=== PATIENT | female | born 1970 | race Caucasian/White ===

== ENCOUNTER → 2016-11-29 | Outpatient (CLI) | payer BC, OTHER ==
--- NOTE | 2016-11-29 16:47 | MAMMOGRAPHY REPORT ---
BILATERAL DIGITAL SCREENING MAMMOGRAM TOMOSYNTHESIS WITH CAD: 11/29/2016 CLINICAL HISTORY: Routine screening. Patient has no complaints. TECHNIQUE: Breast tomosynthesis in addition to standard 2D mammography was performed. Current study was also evaluated with a Computer Aided Detection (CAD) system. COMPARISON: Comparison is made to exams dated: 11/27/2015 mammogram, 12/11/2012 mammogram, 07/31/2014 m ammogram, 06/07/2011 ultrasound, and 06/01/2011 mammogram - [facility]. BREAST COMPOSITION: The tissue of both breasts is heterogeneously dense, which may obscure small ma sses. FINDINGS: There are fluctuating masses in the breasts. A circumscribed margins are best appreciated on the corresponding tomosynthesis images. These most likely represent fluctuating cysts. There a re a few scattered round and punctate benign-appearing microcalcifications in the breasts. No new s uspicious mass, architectural distortion or cluster of microcalcifications is seen. IMPRESSION: ACR BI-RADS CATEGORY 1: NEGATIVE There is no mammographic evidence of malignancy. A 1 year screening mammogram is recommended. The p atient will receive written notification of the results. Approximately 10% of breast cancers are not detected with mammography. A negative mammographic repor t should not delay biopsy if a clinically suggestive mass is present. Magnolia Moreland M.D. ay/:11/29/2016 16:10:00 Shingles Roofer Helper: Melanie CARDENAS)(Enrique), [facility] letter sent: Normal 1/2 BI-RADS Code: ACR BI-RADS Category 1: Negative
== END | disposition home or self-care (01) ==
LOC: C.MAMM 15:41
PROVIDERS: ATTEND Obstetrics & Gynecology
DX: Z12.31 Encounter for screening mammogram for malignant neoplasm of breast (principal)

== ENCOUNTER → 2017-08-29 | Outpatient (CLI) | payer BC, OTHER ==
--- NOTE | 2017-08-29 12:49 | DIAGNOSTIC IMAGING REPORT ---
ABDOMEN LIMITED (US) HISTORY: Pain AB PAIN. COMPARISON: None. FINDINGS: Pancreas: The pancreas demonstrates a normal echotexture. Liver: Unremarkable. Gallbladder: Small amount gallbladder sludge. No shadowing gallstones. CBD: 6 mm Right kidney: No evidence for hydronephrosis. Small nonobstructing calcification lower pole. IMPRESSION: Gallbladder sludge. Normal caliber bile duct. Nonobstructing lower pole right renal calcification The above report was generated using voice recognition software. It may contain grammatical, syntax or spelling errors. Electronically signed by: Siva Gomez M.D. 08/29/2017 12:48 PM Dictated Date/Time: 08/29/2017 12:33 PM
== END | disposition home or self-care (01) ==
LOC: C.ULTR 11:50
PROVIDERS: ATTEND Internal Medicine
DX: R10.13 Epigastric pain (principal); R10.11 Right upper quadrant pain; N20.0 Calculus of kidney; K82.8 Other specified diseases of gallbladder; Z85.828 Personal history of other malignant neoplasm of skin

== ENCOUNTER → 2017-10-04 | Outpatient (CLI) | payer BC, OTHER ==
[~2017-10-04] MED LIST: SINCALIDE INJ 1.45 MCG in SODIUM CHLORIDE 0.9% 100ML 100 ML IV STA
--- NOTE | 2017-10-04 10:06 | DIAGNOSTIC IMAGING REPORT ---
HEPATOBILIARY EF IMAGING CLINICAL HISTORY: 47 years-old Female with AB PAIN. Acute generalized abdominal pain TECHNIQUE: Following the intravenous administration of 5.5 mCi of technetium-99m Choletec, sequential abdominal images were obtained. In order to evaluate the contractile response of the gallbladder, 1.45 mcg of Kinevac was administered by slow intravenous infusion over 30 min starting approximately 60 min after the administration of the radiopharmaceutical. Sequential imaging was continued for 45 min after the start of the Kinevac infusion. COMPARISON: Abdominal ultrasound 08/29/2017 FINDINGS: There is prompt, uniform accumulation of the tracer by the liver. There is normal filling of the intrahepatic ducts, common bile duct and gallbladder and normal excretion of the tracer into the duodenum. There is adequate contraction of the gallbladder. The calculated gallbladder ejection fraction is 52% (normal >40%). There is no significant enterogastric reflux. IMPRESSION: 1. Normal contractile response of the gallbladder to Kinevac infusion. 2. Normal biliary imaging study. The above report was generated using voice recognition software. It may contain grammatical, syntax or spelling errors. Electronically signed by: Dontae Garcia M.D. 10/04/2017 10:04 AM Dictated Date/Time: 10/04/2017 10:02 AM
== END | disposition home or self-care (01) ==
LOC: C.NUCL 07:44
PROVIDERS: ATTEND Nurse Practitioner Family
DX: R10.13 Epigastric pain (principal); K83.8 Other specified diseases of biliary tract

== ENCOUNTER → 2017-12-15 | Outpatient (CLI) | payer OTHER ==
--- NOTE | 2017-12-16 15:27 | MAMMOGRAPHY REPORT ---
BILATERAL DIGITAL SCREENING MAMMOGRAM TOMOSYNTHESIS WITH CAD: 12/15/2017 CLINICAL HISTORY: Routine screening. TECHNIQUE: Breast tomosynthesis in addition to standard 2D mammography was performed. Current study was also evaluated with a Computer Aided Detection (CAD) system. COMPARISON: Comparison is made to exams dated: 11/29/2016 mammogram, 11/27/2015 mammogram, 07/31/2014 m ammogram, 12/11/2012 mammogram, 06/01/2011 mammogram, and 06/07/2011 mammogram - [facility]. BREAST COMPOSITION: The tissue of both breasts is heterogeneously dense, which may obscure small mas ses. FINDINGS: No suspicious masses, calcifications, or areas of architectural distortion are noted in ei ther breast. There has been no significant interval change compared to prior exams. Again noted are fluctuating bilateral circumscribed and partially circumscribed round/oval masses, which are consider ed benign given the multiplicity and bilaterality and likely represent cysts, with cysts noted on the prior 2010 ultrasound exam. Scattered bilateral benign appearing calcifications are also not signif icantly changed. IMPRESSION: ACR BI-RADS CATEGORY 2: BENIGN There is no mammographic evidence of malignancy. A 1 year screening mammogram is recommended. The pa tient will receive written notification of the results. Approximately 10% of breast cancers are not detected with mammography. A negative mammographic report should not delay biopsy if a clinically suggestive mass is present. Opal Larson M.D. /:12/15/2017 15:08:23 Senior Functional Analyst: Jo-Ann CARDENAS)(Enrique), [facility] letter sent: Normal 1/2 BI-RADS Code: ACR BI-RADS Category 2: Benign
== END | disposition home or self-care (01) ==
LOC: C.MAMM 14:32
PROVIDERS: ATTEND Nurse Practitioner Family
DX: Z12.31 Encounter for screening mammogram for malignant neoplasm of breast (principal)

== ENCOUNTER 2018-02-17 09:03 | Emergency (ER) | payer OTHER ==
[~2018-02-17] VITALS: Ht 167.6 cm; Wt 69.4 kg
[2018-02-17 09:05] VITALS: TEMP 36.6; Ht 167.6 cm; Wt 69.4 kg
[2018-02-17] MEDS ORDERED: KETOROLAC TROMETHAMINE 30 MG/ML VIAL IV STA (09:22)
[2018-02-17] MEDS ORDERED: SODIUM CHLORIDE 0.9% 1000ML 1,000 ML IV STA (09:22)
[2018-02-17] MEDS ORDERED: MAGNESIUM SULFATE 1GM / D5W 1 GM BAG IV STA (09:22)
[2018-02-17] MEDS ORDERED: PROCHLORPERAZINE 5 MG/ML 2 ML VIAL IV STA (09:22)
[2018-02-17] MEDS ORDERED: DiphenhydrAMINE HCL 50 MG/ML VIAL IV STA (09:22)
[2018-02-17 09:43] LABS: BASO % 0.2 %; BASO ABS # 0.01 K/uL (0-0.2); EOS ABS # 0.13 K/uL (0-0.5); HEMATOCRIT 41.6 % (37-47); HEMOGLOBIN 14.5 g/dL (12.0-16.0); IG# 0.02 K/uL (0.00-0.02); LYMPH % 21.9 %; LYMPH ABS # 1.44 K/uL (1.2-3.4); MEAN CELL VOLUME 86.3 fL (80-100); MEAN CORPUSCULAR HEMOGLOBIN 30.1 pg (25-34); MEAN CORPUSCULAR HGB CONC 34.9 g/dl (32-36); MONO % 9.1 %; NEUT % 66.5 %; NEUT ABS # 4.38 K/uL (1.4-6.5); PLATELET COUNT 250 K/uL (130-400); RED CELL DISTRIBUTION WIDTH CV 13.7 % (11.5-14.5); RED CELL DISTRIBUTION WIDTH SD 43.7 fL (36.4-46.3); WHITE BLOOD COUNT 6.58 K/uL (4.8-10.8)
[2018-02-17] MEDS ORDERED: IBUP-103 PO (09:49)
[2018-02-17 10:01] LABS: ALBUMIN 3.8 gm/dl (3.4-5.0); CALCIUM 8.8 mg/dl (8.5-10.1); CREATININE 0.66 mg/dl (0.60-1.20); POTASSIUM 3.7 mmol/L (3.5-5.1)
[2018-02-17 10:03] LABS: TOTAL PROTEIN 7.1 gm/dl (6.4-8.2)
--- NOTE | 2018-02-17 10:12 | DIAGNOSTIC IMAGING REPORT ---
CT SCAN OF THE BRAIN WITHOUT IV CONTRAST CLINICAL HISTORY: Headache. COMPARISON STUDY: No priors. TECHNIQUE: Unenhanced axial CT scan of the brain is performed from the vertex to the skull base. A dose lowering technique was utilized adhering to the principles of ALARA. CT DOSE: 537.48 mGy.cm FINDINGS: Brain parenchyma: The brain parenchyma is normal in appearance. There is no hemorrhage, mass effect, or evidence of acute territorial ischemia by CT criteria. Zavaleta-white matter is preserved. No extra-axial fluid collection is seen. Ventricles, sulci, cisterns: Normal in configuration. Intracranial vasculature: The visualized intracranial vasculature at the skull base is normal in appearance. Calvarium: Unremarkable. Sinuses and mastoids: The visualized paranasal sinuses are clear. The mastoid air cells are well pneumatized. Orbits: The bony orbits are grossly intact. IMPRESSION: No acute intracranial abnormality. Electronically signed by: Chon Gaviria M.D. 02/17/2018 10:11 AM Dictated Date/Time: 02/17/2018 10:08 AM
[2018-02-17] MEDS ORDERED: DEXAMETHASONE INJ 10 MG in SYRINGE 0 ML IV STA (10:26)
--- NOTE | 2018-02-17 11:38 | EMERGENCY ROOM VISIT NOTE ---
History Report prepared by Hira: Isaias Cervantes Under the Supervision of: Dr. Rickey Ramos M.D. First contact with patient: 09:13 Chief Complaint: HEAD PAIN Stated Complaint: HEAD PAIN History of Present Illness The patient is a 47 year old female who presents to the Emergency Room with complaints of constant headache beginning two days ago. She localizes the pain to the back of her head. Her pain began with gradually. The patient has a former history of migraines (over 25 years ago), but states that her headache feels unlike any that she has ever had. She also complains of neck stiffness and pain. She describes her neck pain as "aching". The patient denies cough, fevers, or chills. She has taken Advil for her pain, but nothing has improved her symptoms. She denies recent trauma or injury. The patient works at [employer] and is around students frequently. She is concerned about Lyme Disease as she has been outside at her cabin a lot recently. She notes that she has two dogs. The patient states that she has noticed a rash to her neck. Source of History: patient Onset: Two days ago Position: head Quality: ache Timing: constant Modifying Factors (Relieving): other (none) Associated Symptoms: + neck pain ("ache" and stiffness), + rash (to neck), No fevers, No chills, No cough Review of Systems See HPI for pertinent positives & negatives. A total of 10 systems reviewed and were otherwise negative. Past Medical & Surgical Medical Problems: (1) No Known Active Medical Problems Family History No pertinent family history stated. Social History Smoking Status: Never Smoker Marital Status: Housing Status: lives with family Occupation Status: employed Current/Historical Medications Scheduled Ibuprofen Tab (Advil), 800 MG PO UD Allergies Uncoded Allergies: SULFA DRUGS (Adverse Reaction, Intermediate, NAUSEA, 02/17/18) Physical Exam Vital Signs Date Time Temp Pulse Resp B/P (MAP) Pulse Ox O2 Delivery O2 Flow Rate FiO2 02/17/18 11:42 65 16 120/80 98 02/17/18 10:30 62 137/96 02/17/18 10:20 65 02/17/18 09:05 36.6 78 20 139/90 98 Room Air Physical Exam GENERAL: Awake, alert, well-appearing, in no acute distress. No evidence of meningitis or encephalitis on exam. HENT: Normocephalic, atraumatic. Oropharynx unremarkable. EYES: Normal conjunctiva. Sclera non-icteric. NECK: Supple. No nuchal rigidity. FROM. No JVD. RESPIRATORY: Clear to auscultation. CARDIAC: Regular rate, normal rhythm. Extremities warm and well perfused. Pulses equal. ABDOMEN: Soft, non-distended. No tenderness to palpation. No rebound or guarding. No masses. RECTAL: Deferred. MUSCULOSKELETAL: Chest examination reveals no tenderness. The back is symmetrical on inspection without obvious abnormality. There is no CVA tenderness to palpation. No joint edema. LOWER EXTREMITIES: Calves are equal size bilaterally and non-tender. No edema. No discoloration. NEURO: Normal sensorium. No sensory or motor deficits noted. SKIN: No jaundice noted. Appearance of a [place] patch to the right neck. Medical Decision & Procedures ER Provider Diagnostic Interpretation: Radiology results as stated below per my review and radiologist interpretation: CT SCAN OF THE BRAIN WITHOUT IV CONTRAST FINDINGS: Brain parenchyma: The brain parenchyma is normal in appearance. There is no hemorrhage, mass effect, or evidence of acute territorial ischemia by CT criteria. Zavaleta-white matter is preserved. No extra-axial fluid collection is seen. Ventricles, sulci, cisterns: Normal in configuration. Intracranial vasculature: The visualized intracranial vasculature at the skull base is normal in appearance. Calvarium: Unremarkable. Sinuses and mastoids: The visualized paranasal sinuses are clear. The mastoid air cells are well pneumatized. Orbits: The bony orbits are grossly intact. IMPRESSION: No acute intracranial abnormality. Electronically signed by: Chon Gaviria M.D. 02/17/2018 10:11 AM Laboratory Results 02/17/18 09:35 Red Blood Count 4.82, Mean Corpuscular Volume 86.3, Mean Corpuscular Hemoglobin 30.1, Mean Corpuscular Hemoglobin Concent 34.9, Mean Platelet Volume 9.0, Neutrophils (%) (Auto) 66.5, Lymphocytes (%) (Auto) 21.9, Monocytes (%) (Auto) 9.1, Eosinophils (%) (Auto) 2.0, Basophils (%) (Auto) 0.2, Neutrophils # (Auto) 4.38, Lymphocytes # (Auto) 1.44, Monocytes # (Auto) 0.60, Eosinophils # (Auto) 0.13, Basophils # (Auto) 0.01 02/17/18 09:35 Test 02/17/18 09:35 White Blood Count 6.58 K/uL (4.8-10.8) Red Blood Count 4.82 M/uL (4.2-5.4) Hemoglobin 14.5 g/dL (12.0-16.0) Hematocrit 41.6 % (37-47) Mean Corpuscular Volume 86.3 fL (80-100) Mean Corpuscular Hemoglobin 30.1 pg (25-34) Mean Corpuscular Hemoglobin Concent 34.9 g/dl (32-36) Platelet Count 250 K/uL (130-400) Mean Platelet Volume 9.0 fL (7.4-10.4) Neutrophils (%) (Auto) 66.5 % Lymphocytes (%) (Auto) 21.9 % Monocytes (%) (Auto) 9.1 % Eosinophils (%) (Auto) 2.0 % Basophils (%) (Auto) 0.2 % Neutrophils # (Auto) 4.38 K/uL (1.4-6.5) Lymphocytes # (Auto) 1.44 K/uL (1.2-3.4) Monocytes # (Auto) 0.60 K/uL (0.11-0.59) Eosinophils # (Auto) 0.13 K/uL (0-0.5) Basophils # (Auto) 0.01 K/uL (0-0.2) RDW Standard Deviation 43.7 fL (36.4-46.3) RDW Coefficient of Variation 13.7 % (11.5-14.5) Immature Granulocyte % (Auto) 0.3 % Immature Granulocyte # (Auto) 0.02 K/uL (0.00-0.02) Anion Gap 2.0 mmol/L (3-11) Est Creatinine Clear Calc Drug Dose 97.5 ml/min Estimated GFR () 121.1 Estimated GFR (Non- 104.5 BUN/Creatinine Ratio 18.4 (10-20) Calcium Level 8.8 mg/dl (8.5-10.1) Total Bilirubin 1.4 mg/dl (0.2-1) Direct Bilirubin 0.3 mg/dl (0-0.2) Aspartate Amino Transf (AST/SGOT) 10 U/L (15-37) Alanine Aminotransferase (ALT/SGPT) 17 U/L (12-78) Alkaline Phosphatase 77 U/L (45-117) Total Protein 7.1 gm/dl (6.4-8.2) Albumin 3.8 gm/dl (3.4-5.0) Lipase 218 U/L (73-393) Lyme Disease IgG Antibody NEG (NEG) Lyme Disease IgM Antibody NEG (NEG) Labs reviewed by ED physician. Medications Administered Medications (Trade) Dose Ordered Sig/Paulo Route Start Time Stop Time Status Last Admin Dose Admin Sodium Chloride 1,000 ml @ 999 mls/hr Q1H1M STAT IV 02/17/18 09:22 02/17/18 10:22 DC 02/17/18 09:22 999 MLS/HR Ketorolac Tromethamine (Toradol Inj) 30 mg NOW STAT IV 02/17/18 09:22 02/17/18 09:24 DC 02/17/18 09:37 30 MG Prochlorperazine Edisylate (Compazine Inj) 5 mg NOW STAT IV 02/17/18 09:22 02/17/18 09:24 DC 02/17/18 09:37 5 MG Diphenhydramine HCl (Benadryl Inj) 50 mg NOW STAT IV 02/17/18 09:22 02/17/18 09:24 DC 02/17/18 09:37 50 MG Magnesium Sulfate (Magnesium Sulfate) 1 gm NOW STAT IV 02/17/18 09:22 02/17/18 09:24 DC 02/17/18 09:36 1 GM Dexamethasone Sodium Phosphate 10 mg/Syringe 2.5 ml @ 1 mls/min NOW STAT IV 02/17/18 10:26 02/17/18 10:28 DC 02/17/18 10:43 1 MLS/MIN ED Course 0915: Past medical records reviewed. The patient was evaluated in room B12B. A complete history and physical examination was performed. 0922: Ordered Magnesium Sulfate 1 gm IV, Benadryl Inj 50 mg IV, Compazine Inj 5 mg IV, Toradol Inj 30 mg IV, Sodium Chloride 1000 ml @ 999 mls/hr IV. 1135: Upon reexamination the patient is resting comfortably. She would like to go home. I discussed results and treatment plan with the patient. She verbalizes agreement and understanding. The patient is ready for discharge. Medical Decision Differential diagnosis: Etiologies such as migraine headache, meningitis, sinusitis, CO exposure, ICH, SAH, infection, tumor, headache, sinus thrombosis, arterial dissection, as well as others were entertained. This is a 47-year-old female who presents emergency department complaining of a headache. In addition the patient appears to have a herald patch on her right lower neck area. 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 An IV was established, the patient is given normal saline bolus. The patient does not have any evidence of meningitis or encephalitis on examination and using shared medical decision- making we made the decision together not to perform a lumbar puncture. The patient was given will saline bolus along with Toradol Decadron. Repeat examination revealed much improvement patient's symptoms. The patient does wish to try it at home. She has a normal CAT scan the head I feel that this is reasonable however strongly cautioned her to return to the emergency department if the headache worsens she develops any fevers. Patient family were in agreement with the treatment plan. Medication Reconcilliation Current Medication List: was personally reviewed by me Blood Pressure Screening Patient's blood pressure: Elevated blood pressure Blood pressure disposition: Elevated BP felt to be situational Impression Primary Impression: Headache Scribe Attestation The scribe's documentation has been prepared under my direction and personally reviewed by me in its entirety. I confirm that the note above accurately reflects all work, treatment, procedures, and medical decision making performed by me. Departure Information Dispostion Home / Self-Care Referrals Blanka Koo, C.R.N.P. (PCP) Forms HOME CARE DOCUMENTATION FORM, IMPORTANT VISIT INFORMATION, WORK / SCHOOL INSTRUCTIONS Patient Instructions Headache Pain, [facility], Pityriasis Rosea Additional Instructions Suspect "herald patch" rt lower neck area You have been examined and treated today on an emergency basis only. This is not a substitute for, or an effort to provide, complete comprehensive medical care. It is impossible to recognize and treat all injuries or illnesses in a single emergency department visit. It is therefore important that you follow up closely with your PCP. Call as soon as possible for an appointment. Thank you for your time and consideration. I look forward to speaking with you again soon. Please don't hesitate to call us if you have any questions. Problem Qualifiers Primary Impression: Headache Headache type: unspecified Headache chronicity pattern: unspecified pattern Intractability: not intractable Qualified Codes: R51 - Headache
[2018-02-17 11:42] VITALS: BP 120/80; PULSE 65; O2SAT 98
== END 2018-02-17 11:43 | disposition home or self-care (01) ==
LOC: C.EDB 09:04
DX: R51 Headache (principal); Z88.2 Allergy status to sulfonamides

== ENCOUNTER 2018-02-21 21:17 | Emergency (ER) | payer OTHER ==
[~2018-02-21] VITALS: Ht 167.6 cm; Wt 70.9 kg
[~2018-02-21 21:17] MED LIST changes: +IBUP-103 PO; -SINCALIDE INJ 1.45 MCG in SODIUM CHLORIDE 0.9% 100ML 100 ML IV STA
[2018-02-21 21:20] VITALS: TEMP 36.4; Ht 167.6 cm; Wt 70.9 kg
[2018-02-21] MEDS ORDERED: KETOROLAC TROMETHAMINE 15 MG/ML VIAL IV STA (21:51)
[2018-02-21] MEDS ORDERED: DiphenhydrAMINE HCL 50 MG/ML VIAL IV STA (21:51)
[2018-02-21] MEDS ORDERED: SODIUM CHLORIDE 0.9% 1000ML 1,000 ML IV STA (21:51)
[2018-02-21] MEDS ORDERED: PROCHLORPERAZINE 5 MG/ML 2 ML VIAL IV STA (21:51)
[2018-02-21 22:37] LABS: BASO % 0.1 %; BASO ABS # 0.01 K/uL (0-0.2); EOS ABS # 0.25 K/uL (0-0.5); HEMATOCRIT 35.8 % (37-47); HEMOGLOBIN 12.1 g/dL (12.0-16.0); IG# 0.02 K/uL (0.00-0.02); LYMPH % 36.6 %; LYMPH ABS # 3.02 K/uL (1.2-3.4); MEAN CELL VOLUME 86.9 fL (80-100); MEAN CORPUSCULAR HEMOGLOBIN 29.4 pg (25-34); MEAN CORPUSCULAR HGB CONC 33.8 g/dl (32-36); MEAN PLATELET VOLUME 8.8 fL (7.4-10.4); MONO % 8.5 %; NEUT % 51.6 %; NEUT ABS # 4.25 K/uL (1.4-6.5); PLATELET COUNT 256 K/uL (130-400); RED CELL DISTRIBUTION WIDTH CV 13.7 % (11.5-14.5); RED CELL DISTRIBUTION WIDTH SD 43.5 fL (36.4-46.3); WHITE BLOOD COUNT 8.25 K/uL (4.8-10.8)
[2018-02-21 22:54] LABS: ALBUMIN 3.2 gm/dl (3.4-5.0); CREATININE 0.61 mg/dl (0.60-1.20); POTASSIUM 3.4 mmol/L (3.5-5.1)
[2018-02-21 22:57] LABS: TOTAL PROTEIN 5.9 gm/dl (6.4-8.2)
[2018-02-21] MEDS ORDERED: OPTIRAY 320 IV PRN (23:15)
[2018-02-22] MEDS ORDERED: LIDOCAINE HCL 1% 20 ML VIAL ONE (01:25)
[2018-02-22] MEDS ORDERED: SODIUM CHLORIDE 0.9% 500ML 500 ML IV STA (01:42)
[2018-02-22] MEDS ORDERED: HYDROmorphone INJ 0.5 MG/0.5 ML SYR IV STA (01:42)
[2018-02-22 02:12] VITALS: BP 130/78
[2018-02-22 02:13] LABS: CSF GLUCOSE 65 mg/dl (40-70); CSF TOTAL PROTEIN 21.2 mg/dl (15.0-45.0)
--- NOTE | 2018-02-22 02:34 | EMERGENCY ROOM VISIT NOTE ---
ED Visit Note First contact with patient: 21:33 The patient was seen and examined with Yoly Fajardo PA-C. I agree with the history, physical and findings. Please see the note for disposition and details. CTA imaging raise concerns for a possible 3 mm aneurysm at the bifurcation of the right MCA. Because of this lumbar puncture was felt to be necessary to rule out any subarachnoid hemorrhage as well as any infection. This was performed by me as noted below. This went uneventfully. The patient had no white blood cells and only 1 red blood cell. Protein and glucose were normal. Gram stain was negative. This is not consistent with subarachnoid hemorrhage or encephalitis/meningitis. Neurology was consulted. Outpatient follow-up was arranged. LUMBAR PUNCTURE: Indication: Headache. Verbal consent was obtained after the risks and benefits were explained, including but not limited to headache, bleeding, scarring, infection, pain, and bone/joint/nerve damage. At this time, the risks of the procedure are less than the risks of NOT performing the procedure. A time out was taken and the correct patient and site identified. The patient was placed in the left lateral decubitus position and the back was prepped and draped in the standard fashion with betadine. The L3 intervertebral space was identified, anesthetized with lidocaine, and the spinal needle was inserted through the skin with the bevel parallel to the dural fibers. The needle was carefully advanced into the sac and 4 tubes of clear CSF was obtained. The stylet was replaced and the needle was removed. A bandaid was placed and the patient was placed in the supine position. The patient tolerated the procedure well and there were no complications.
[2018-02-22] MEDS ORDERED: NORCO 5/325MG HOME PACK PO ONE (02:45)
[2018-02-22] MEDS ORDERED: METH4PAK PO (02:54)
[2018-02-22] MEDS ORDERED: HYDR-5688 PO (02:54)
--- NOTE | 2018-02-22 02:55 | EMERGENCY ROOM VISIT NOTE ---
History First contact with patient: 21:33 Chief Complaint: HEADACHE Stated Complaint: HEADACHE History of Present Illness The patient is a 47 year old female who presents to the Emergency Room with complaints of a headache. The patient was seen here 4 days ago for a headache. She states that at that time, she had a headache for a few days and the headache was located on both sides of her head and the upper part of her neck. When the patient was discharged from the ER, she felt much better although the headache was not completely gone. She states it has gradually returned over the past several days and worsened throughout the day today. The headache is now mostly located on the right side of her neck and the right side of her head. She saw her primary care provider this morning and was prescribed Flexeril. She took 1 of these this evening and states it did not improve her headache and may have worsened her symptoms. She additionally took 2 Tylenol prior to arrival here which did not alleviate her headache. She states she feels tenderness and stiffness on the right side of her neck. She has a shooting pain through the right side of her head. She reports a remote history of migraines 25 years ago, but states this headache does not feel similar to her previous migraine headaches. She has no nausea/vomiting, sensitivity to light, numbness or weakness. She denies any history of neck or back problems. She denies any head or neck injury. She denies fever/chills or recent illness. Review of Systems A complete 10 point review of systems was reviewed with the patient with pertinent positives and negatives as per history of present illness. All else were negative.v Past Medical/Surgical History Medical Problems: (1) No Known Active Medical Problems Social History Smoking Status: Never Smoker Marital Status: Housing Status: lives with family Occupation Status: employed Current/Historical Medications Scheduled Methylprednisolone (Medrol Dosepak), 0 PO DAILY Scheduled PRN Hydrocodone/Acetaminophen 5MG/325MG ([place] 5MG/325MG), 1-2 TABLET PO Q4H PRN for Pain Physical Exam Vital Signs Date Time Temp Pulse Resp B/P (MAP) Pulse Ox O2 Delivery O2 Flow Rate FiO2 02/22/18 03:00 65 16 98 02/22/18 02:12 69 16 130/78 97 Room Air 02/22/18 00:22 76 16 108/66 96 Room Air 02/21/18 22:54 56 16 113/81 97 Room Air 02/21/18 21:20 36.4 72 18 154/94 99 Room Air Physical Exam VITALS: Vitals are noted on the nurse's note and reviewed by myself. Vital signs stable. GENERAL: This is a 47-year-old female, in no acute distress, nondiaphoretic, well-developed well-nourished. SKIN: The skin was without rashes. HEAD: Normocephalic atraumatic. EARS: External auditory canals clear, tympanic membranes pearly barcenas without erythema or effusion bilaterally. EYES: Pupils equal round and reactive to light and accommodation. Extraocular movements intact. MOUTH: Mucous membranes moist. Tonsils are not enlarged. Pharynx without erythema or exudate. NECK: Supple without nuchal rigidity. No lymphadenopathy. Full range of motion of the neck in all directions. Kernig's and Brudzinski's negative. HEART: Regular rate and rhythm without murmurs gallops or rubs. LUNGS: Clear to auscultation bilaterally without wheezes, rales or rhonchi. MUSCULOSKELETAL: Strength 5/5 throughout. NEURO: Patient was alert and oriented to person place and time. Normal sensation. Deep tendon reflexes 2+. No focal neurological deficits. Medical Decision & Procedures ER Provider Diagnostic Interpretation: ADDENDUM - Added by Aleyda Baker M.D. on 02/21/2018 11:58 PM (-07:00) Possible 3 mm aneurysm of the right MCA bifurcation CT HEAD: No acute intracranial process. CTA HEAD: No central aneurysm or occlusion related to the [place] of [place]. CTA NECK: Unremarkable exam. Radiologist: Aleyda Baker M.D. Laboratory Results 02/21/18 22:22 Red Blood Count 4.12, Mean Corpuscular Volume 86.9, Mean Corpuscular Hemoglobin 29.4, Mean Corpuscular Hemoglobin Concent 33.8, Mean Platelet Volume 8.8, Neutrophils (%) (Auto) 51.6, Lymphocytes (%) (Auto) 36.6, Monocytes (%) (Auto) 8.5, Eosinophils (%) (Auto) 3.0, Basophils (%) (Auto) 0.1, Neutrophils # (Auto) 4.25, Lymphocytes # (Auto) 3.02, Monocytes # (Auto) 0.70, Eosinophils # (Auto) 0.25, Basophils # (Auto) 0.01 02/21/18 22:22 Test 02/21/18 22:22 02/22/18 01:40 White Blood Count 8.25 K/uL (4.8-10.8) Red Blood Count 4.12 M/uL (4.2-5.4) Hemoglobin 12.1 g/dL (12.0-16.0) Hematocrit 35.8 % (37-47) Mean Corpuscular Volume 86.9 fL (80-100) Mean Corpuscular Hemoglobin 29.4 pg (25-34) Mean Corpuscular Hemoglobin Concent 33.8 g/dl (32-36) Platelet Count 256 K/uL (130-400) Mean Platelet Volume 8.8 fL (7.4-10.4) Neutrophils (%) (Auto) 51.6 % Lymphocytes (%) (Auto) 36.6 % Monocytes (%) (Auto) 8.5 % Eosinophils (%) (Auto) 3.0 % Basophils (%) (Auto) 0.1 % Neutrophils # (Auto) 4.25 K/uL (1.4-6.5) Lymphocytes # (Auto) 3.02 K/uL (1.2-3.4) Monocytes # (Auto) 0.70 K/uL (0.11-0.59) Eosinophils # (Auto) 0.25 K/uL (0-0.5) Basophils # (Auto) 0.01 K/uL (0-0.2) RDW Standard Deviation 43.5 fL (36.4-46.3) RDW Coefficient of Variation 13.7 % (11.5-14.5) Immature Granulocyte % (Auto) 0.2 % Immature Granulocyte # (Auto) 0.02 K/uL (0.00-0.02) Erythrocyte Sedimentation Rate 5 mm/hr (0-21) Anion Gap 5.0 mmol/L (3-11) Est Creatinine Clear Calc Drug Dose 105.5 ml/min Estimated GFR () 124.2 Estimated GFR (Non- 107.2 BUN/Creatinine Ratio 15.0 (10-20) Calcium Level 8.0 mg/dl (8.5-10.1) Total Bilirubin 0.4 mg/dl (0.2-1) Aspartate Amino Transf (AST/SGOT) 11 U/L (15-37) Alanine Aminotransferase (ALT/SGPT) 18 U/L (12-78) Alkaline Phosphatase 63 U/L (45-117) Total Protein 5.9 gm/dl (6.4-8.2) Albumin 3.2 gm/dl (3.4-5.0) Globulin 2.6 gm/dl (2.5-4.0) Albumin/Globulin Ratio 1.2 (0.9-2) CSF Color COLORLESS CSF Appearance CLEAR CSF WBC 0 /uL (0-5) CSF RBC 1 /uL (0) CSF Xanthrochromic NO XANTHOCHROMIA CSF Cell Count Tube # 4 CSF Chemistry Tube # 2 CSF Glucose 65 mg/dl (40-70) CSF Total Protein 21.2 mg/dl (15.0-45.0) Date/Time Source Procedure Growth Status 02/22/18 01:40 Cerebral Spinal Fluid Gram Stain - Final Complete 02/22/18 01:40 Cerebral Spinal Fluid CSF Culture - Final NO GROWTH Complete Medications Administered Medications (Trade) Dose Ordered Sig/Paulo Route Start Time Stop Time Status Last Admin Dose Admin Sodium Chloride 1,000 ml @ 999 mls/hr Q1H1M STAT IV 02/21/18 21:51 02/21/18 22:51 DC 02/21/18 22:09 999 MLS/HR Ketorolac Tromethamine (Toradol Inj) 15 mg NOW STAT IV 02/21/18 21:51 02/21/18 21:54 DC 02/21/18 22:10 15 MG Diphenhydramine HCl (Benadryl Inj) 25 mg NOW STAT IV 02/21/18 21:51 02/21/18 21:54 DC 02/21/18 22:10 25 MG Prochlorperazine Edisylate (Compazine Inj) 10 mg NOW STAT IV 02/21/18 21:51 02/21/18 21:54 DC 02/21/18 22:10 10 MG Sodium Chloride 500 ml @ 999 mls/hr Q31M STAT IV 02/22/18 01:42 02/22/18 02:12 DC 02/22/18 02:10 999 MLS/HR Hydromorphone HCl (Dilaudid Inj) 0.5 mg NOW STAT IV 02/22/18 01:42 02/22/18 01:43 DC 02/22/18 02:11 0.5 MG Acetaminophen/ Hydrocodone Bitart ([place] 5/325mg Home Pack) 1 homepack UD ONCE PO 02/22/18 02:45 02/22/18 02:46 DC 02/22/18 02:56 1 HOMEPACK Medical Decision The differential diagnosis includes acute intracranial bleed, meningitis, encephalitis, mass or mass effect, sinusitis, infection, tumor, headache, temporal arteritis and carbon monoxide exposure, and migraine. The patient is a 47-year-old female who presents today complaining of headache. This is the patient's second visit for this headache. She additionally reports pain in the right side of her neck. Labs revealed no leukocytosis. CTA of the head/neck were performed and read by statrad as above. Patient did have a possible aneurysm. For this reason, lumbar puncture was performed. Please see Dr. Jackman's procedure note. This showed no significant RBC's and no evidence of meningitis. I did speak with Dr. Le of neurology, who recommended that the patient see her own PCP for neurosurgery eval and recommended a course of steroids. The patient was treated as above with good improvement of her symptoms. The patient was independently evaluated by Dr. Jackman, ED attending physician, who agreed with my assessment and treatment plan. Based on the patient's presentation and work up, I feel the patient is stable for outpatient treatment. The patient was educated to return to the emergency department for any worsening of their current condition or new/concerning symptoms. She will follow up with her PCP/neurology. [place] Drug Monitoring Program Search Results: patient reviewed within database, no issues identified Medication Reconcilliation Current Medication List: was personally reviewed by me Blood Pressure Screening Patient's blood pressure: Normal blood pressure Impression Primary Impression: Headache Departure Information Dispostion Home / Self-Care Condition GOOD Prescriptions Methylprednisolone (MEDROL DOSEPAK) 4 Mg Narendra 0 PO DAILY, #1 PKT Prov: Yoly Fajardo PA-C 02/22/18 Hydrocodone/Acetaminophen 5MG/325MG ([place] 5MG/325MG) Tab 1-2 TABLET PO Q4H Y for Pain, #15 TAB For Initial Treatment Prov: Yoly Fajardo PA-C 02/22/18 Referrals Blanka Koo C.R.N.PTawana (PCP) Elina Le M.D. Patient Instructions My [facility] Additional Instructions You have been treated in the Emergency Department for a Headache. You have received pain medicine in the emergency department which impairs your ability to operate a vehicle. It is illegal for you to drive after receiving these medicines. You have been prescribed [place] to be used for pain control. This is a narcotic medication. You cannot drive or consume alcohol while on this medicine. This medicine should only be used for pain that cannot be controlled with over-the- counter pain medicines. For pain control, you can use the following [id number]-xwz-yhvwyie medicines (if >12 yo): - Regular strength (325mg/tab) Tylenol (acetaminophen) 2 tabs every 4-6 hours as needed. Do not exceed 12 tablets in a 24 hour period. Avoid taking more than 4 grams (4000 mg) of Tylenol per day. This includes any other sources of acetaminophen you may take on a regular basis. - Regular strength (200 mg/tab) Advil (ibuprofen) 1-2 tabs every 4-6 hours as needed. Do not exceed a dose of 3200 mg per day. You should relax in a quiet, dark place for the rest of the day. Avoid any possible triggers including: cigarette smoke, caffeine, nicotine, chocolate, wine, beer, loud noises or music, or bright lights. Follow-up with your primary care provider this week for recheck and referral. If you have persistent headaches, you may follow-up with neurology locally. Otherwise, you should follow-up with neurosurgery when able. Return to the Emergency Department if your current symptoms worsen despite treatment course outlined above, or if you develop any of the following symptoms : intractable pain despite aforementioned treatment course, visual disturbances , loss of vision, unilateral weakness or facial drooping, slurring of speech, loss of coordination, or loss of consciousness.
[2018-02-22 03:00] VITALS: PULSE 65; O2SAT 98
--- NOTE | 2018-02-22 06:58 | DIAGNOSTIC IMAGING REPORT ---
NECK ANGIO WITH CONTRAST HISTORY: Head pain neck pain. Mental status change. TECHNIQUE: Multiaxial CT images of the neck were performed following the intravenous administration of contrast to evaluate the major cervical vessels. Maximum intensity projection images were also obtained. All measurements were calculated based on NASCET criteria. A dose lowering technique was utilized adhering to the principles of ALARA. COMPARISON STUDY: None. FINDINGS: The aortic arch and proximal great vessels are widely patent. There is no significant stenosis, occlusion, or dissection identified within the bilateral common carotid, internal carotid, or vertebral arteries. Minimal scattered plaque formation IMPRESSION: No significant stenosis, occlusion, or dissection identified within the carotid or vertebral arteries. Minimal scattered plaque formation The above report was generated using voice recognition software. It may contain grammatical, syntax or spelling errors. Electronically signed by: Siva Gomez M.D. 02/22/2018 6:57 AM Dictated Date/Time: 02/22/2018 6:54 AM
--- NOTE | 2018-02-22 07:20 | DIAGNOSTIC IMAGING REPORT ---
HEAD CTA HISTORY: Headache. TECHNIQUE: Multiaxial CT images of the head were performed both before and after the intravenous administration of contrast to evaluate the major cerebral vessels. Maximum intensity projection images were also obtained. A dose lowering technique was utilized adhering to the principles of ALARA. COMPARISON: Head CT 02/17/2018. FINDINGS: There is no mass, hematoma, midline shift, or acute infarct. Visualized intracranial internal carotid arteries, distal vertebral arteries, and basilar artery are widely patent. There is no significant stenosis, occlusion, or aneurysm seen within the bilateral ACAs, MCAs, or chuck splitter. IMPRESSION: No significant stenosis, occlusion, or aneurysm within the [place] of [place]. Electronically signed by: Luigi Macario M.D. 02/22/2018 7:19 AM Dictated Date/Time: 02/22/2018 7:14 AM
== END 2018-02-22 03:03 | disposition home or self-care (01) ==
LOC: C.EDB 21:18 → C.EDA 02-22 03:03
DX: R51 Headache (principal); M54.2 Cervicalgia